=== PATIENT | female | born 1990 | race Caucasian/White ===

== ENCOUNTER 2019-07-15 06:58 | Inpatient (IN) | payer BC, MEDICAID ==
[2019-07-15] MEDS ORDERED: Misoprostol 50 MCG (1/2 of 100 MCG) Tab VAG ONE (07:12)
[2019-07-15] MEDS ORDERED: Sodium Chloride 0.9% 10 ML Syringe FLUSH PRN (07:25)
[2019-07-15] MEDS ORDERED: Ondansetron 4 MG/2 ML SDV IV PRN (07:25)
--- NOTE | 2019-07-15 07:43 | PCM.LDHP ---
L&D History of Present Illness - General Date of Service: 07/15/19 Admit Problem/Dx: Patient Status Order with Admit Dx/Problem 07/15/19 07:25 Patient Status [ADT] Routine Admission Diagnosis/Problem Admission Diagnosis/Problem - Related Data Allergies/Adverse Reactions: Allergies Allergy/AdvReac Type Severity Reaction Status Date / Time No Known Allergies Allergy Verified 07/15/19 07:19 Home Medications: Home Meds Lactobacillus Acidophilus [Probiotic] 1 each PO DAILY 07/15/19 [History] Pnv No.122/Iron/Folic Acid [ Multi Tablet] 1 tab PO DAILY 07/15/19 [ History] H&P Review of Systems - Review of Systems: Review Of Systems: See Below General: Reports: No Symptoms HEENT: Reports: No Symptoms Pulmonary: Reports: No Symptoms Cardiovascular: Reports: No Symptoms Gastrointestinal: Reports: No Symptoms Genitourinary: Reports: No Symptoms Musculoskeletal: Reports: No Symptoms Skin: Reports: No Symptoms Psychiatric: Reports: No Symptoms Neurological: Reports: No Symptoms Hematologic/Lymphatic: Reports: No Symptoms Immunologic: Reports: No Symptoms L&D Exam - Exam Exam: See Below - OB Specific Movement: Active Heart Tones: Present Presentation: Vertex - Kaminski Score Kaminski Score Cervix Position: Anterior Kaminski Score Consistency: Soft Kaminski Score Effacement: 51-70% Kaminski Score Dilation: 1-2 cm Kaminski Score 's Station: -1 ,0 Kaminski Score Total: 9 - Exam General: Alert, Oriented HEENT: PERRLA, Conjunctiva Clear, EACs Clear, EOMI, Hearing Intact, Mucosa Moist & [place], Nares Patent, Normal Nasal Septum, Posterior Pharynx Clear, TMs Clear Neck: Supple, Trachea Midline Lungs: Clear to Auscultation, Normal Respiratory Effort Cardiovascular: Regular Rate, Regular Rhythm GI/Abdominal Exam: Normal Bowel Sounds, Soft, Non-Tender, No Organomegaly, No Distention, No Abnormal Bruit, No Mass, Pelvis Stable Rectal Exam: Normal Exam, Normal Rectal Tone Genitourinary: Normal external exam, Normal bimanual exam, Normal speculum exam Back Exam: Normal Inspection, Full Range of Motion Extremities: Normal Inspection, Normal Range of Motion, Non-Tender, No Pedal Edema, Normal Capillary Refill Skin: Warm, Dry, Intact Neurological: Cranial Nerves Intact, Reflexes Equal Bilateral DTR: 2+: Patella (L), Patella (R) Psychiatric: Alert, Normal Affect, Normal Mood - Patient Data Lab Results Last 24 hrs: Laboratory Results - last 24 hr 07/15/19 Range/Units 07:11 WBC 9.1 (4.5-11.0) K/uL RBC 4.32 (3.30-5.50) M/uL Hgb 12.9 (12.0-15.0) g/dL Hct 38.9 (36.0-48.0) % MCV 90 (80-98) fL MCH 30 (27-31) pg MCHC 33 (32-36) % Plt Count 207 (150-400) K/uL Neut % (Auto) 80 H (36-66) % Lymph % (Auto) 14 L (24-44) % [place] % (Auto) 6 (2-6) % Eos % (Auto) 1 L (2-4) % Baso % (Auto) 0 (0-1) % Result Diagrams: 07/15/19 07:11 - Problem List (1) SNOMED Code(s): 84209118 ICD Code: Z34.90 - ENCNTR FOR SUPRVSN OF NORMAL , UNSP, UNSP TRIMESTER Status: Acute Current Visit: Yes Qualifiers: Weeks of gestation: 39 weeks Qualified Code(s): Z3A.39 - 39 weeks gestation of (2) Hx of macrosomia in infant in prior , currently SNOMED Code(s): 75748288208112, 59930566097996 ICD Code: O09.299 - SUPRVSN OF PREG W POOR REPRODCTV OR OBSTET HISTORY, UNSP TRI Status: Acute Current Visit: Yes (3) Encounter for induction of labor SNOMED Code(s): 671349082 ICD Code: Z34.90 - ENCNTR FOR SUPRVSN OF NORMAL , UNSP, UNSP TRIMESTER Status: Acute Current Visit: Yes Problem List Initiated/Reviewed/Updated: Yes Orders Last 24hrs: Active Orders 24 hr Category Date Time Status Patient Status [ADT] Routine ADT 07/15/19 07:25 Active Ambulate [RC] PER UNIT ROUTINE Care 07/15/19 07:25 Active Communication Order [RC] ASDIRECTED Care 07/15/19 07:25 Active Heart Tones [RC] PER UNIT ROUTINE Care 07/15/19 07:25 Active Non Stress Test [RC] Click to Edit Care 07/15/19 07:25 Active May Shower [RC] ASDIRECTED Care 07/15/19 07:25 Active Notify Provider Vital Signs [RC] PRN Care 07/15/19 07:25 Active Notify Provider [RC] PRN Care 07/15/19 07:25 Active Up ad Carmen [RC] ASDIRECTED Care 07/15/19 07:25 Active VTE/DVT Education [RC] Click to Edit Care 07/15/19 07:26 Active Vital Signs [RC] PER UNIT ROUTINE Care 07/15/19 07:25 Active Regular Diet [DIET] Diet 07/15/19 Breakfast Active DRUG SCREEN, URINE [URCHEM] Routine Lab 07/15/19 07:11 Ordered UA W/MICROSCOPIC [URIN] Routine Lab 07/15/19 07:10 Ordered Ondansetron [Zofran] Med 07/15/19 07:25 Active 4 mg IV Q4H PRN Sodium Chloride 0.9% [Saline Flush] Med 07/15/19 07:25 Active 10 ml FLUSH ASDIRECTED PRN DVT/VTE Prophylaxis Reflex [OM.PC] Routine Oth 07/15/19 07:25 Ordered Saline Lock Insert [OM.PC] Routine Oth 07/15/19 07:25 Ordered Resuscitation Status Routine Resus Stat 07/15/19 07:25 Ordered Medication Orders Ondansetron HCl (Zofran) 4 mg IV Q4H PRN PRN Reason: Nausea/Vomiting Sodium Chloride (Saline Flush) 10 ml FLUSH ASDIRECTED PRN PRN Reason: Keep Vein Open Assessment/Plan Comment:: 07/15/2019 29 yo here at 39 0/7 gestational weeks here for an induction of labor due to macrosomia in previous pregnancies and this baby measuring three weeks ahead on last ultrasound SVE-2-/-2 FHT-category one Occasional contraction Cytotec placed vaginally 50mcg Labs-O negative, GBS negative, Hep B neg, Hep C neg, HIV neg, RPR nonreactive, Rubella Immune, Hgb-12.9 Plan- Continue to monitor for active labor Continue to monitor FHTs Pain management per patient request Patient may eat regular diet Patient may be up ad carmen Plan and anticipate vaginal delivery
[2019-07-15] MEDS ORDERED: Oxytocin 10 Units/1 ML SDV ONE (11:07)
[2019-07-15] MEDS ORDERED: Naloxone 0.4 MG/ML SDV ONE (11:08)
[2019-07-15] MEDS ORDERED: Lidocaine 1% 50 ML MDV ONE (11:09)
[2019-07-15] MEDS ORDERED: Lanolin 100% Cream 40 GM Tube TOP ONE (13:09)
[2019-07-15] MEDS ORDERED: Benzocaine 20% Top Spray 56 GM Bottle TOP ONE (13:09)
[2019-07-15] MEDS ORDERED: Docusate Sodium 100 MG Cap PO PRN (13:09)
[2019-07-15] MEDS ORDERED: Acetaminophen 325 MG Tab, 50 Tab Bulk Bottle PO PRN (13:09)
[2019-07-15] MEDS ORDERED: Witch Hazel Medicated Pads 100/Jar TOP ONE (13:09)
[2019-07-15] MEDS ORDERED: Ibuprofen 200 MG Tab, 24 Tab Bulk Bottle PO PRN (13:09)
--- NOTE | 2019-07-15 13:38 | PCM.PNLD ---
Labor Progress Note - VS & Meds Vital Signs: Last Vital Signs Temp 36.6 C 07/15/19 11:30 Pulse 82 07/15/19 11:30 Resp 16 07/15/19 11:30 BP 137/82 07/15/19 11:30 Pulse Ox 99 07/15/19 11:30 Active Medications: Current Medications Acetaminophen (Tylenol Bulk Bottle) 0 mg PO Q4H PRN PRN Reason: Pain Benzocaine (Sroa-L-Vrebnuv 20% [place]) 0 gm TOP ONETIME ONE Stop: 07/15/19 13:10 Docusate Sodium (Colace) 100 mg PO BID PRN PRN Reason: Constipation Emollient Ointment (Lansinoh Hpa) 1 gm TOP ONETIME ONE Stop: 07/15/19 13:10 Oxytocin/Sodium Chloride (Pitocin In Ns 20 Units/1,000 Ml) 20 unit in 1,000 mls @ 999 mls/hr IV TITRATE JORDAN; Protocol Ibuprofen (Motrin Bulk Bottle) 600 mg PO Q6H PRN PRN Reason: Pain Ondansetron HCl (Zofran) 4 mg IV Q4H PRN PRN Reason: Nausea/Vomiting Sodium Chloride (Saline Flush) 10 ml FLUSH ASDIRECTED PRN PRN Reason: Keep Vein Open Witch Jazmyne (Tucks) 1 pad TOP ONETIME ONE Stop: 07/15/19 13:10 Discontinued Medications Oxytocin/Sodium Chloride (Pitocin In Ns 20 Units/1,000 Ml) Confirm Administered Dose 20 unit in 1,000 mls @ as directed .ROUTE .STK-MED ONE Stop: 07/15/19 11:10 Lidocaine HCl (Xylocaine 1%) Confirm Administered Dose 100 ml .ROUTE .STK-MED ONE Stop: 07/15/19 11:10 Misoprostol (Cytotec) 50 mcg VAG ONETIME ONE Stop: 07/15/19 07:13 Last Admin: 07/15/19 07:31 Dose: 50 mcg Naloxone HCl (Narcan) Confirm Administered Dose 0.4 mg .ROUTE .STK-MED ONE Stop: 07/15/19 11:09 Oxytocin (Pitocin) Confirm Administered Dose 10 unit .ROUTE .STK-MED ONE Stop: 07/15/19 11:08 - Uterine Contractions Uterine Monitoring Mode: External [place] Contraction Frequency (min): 2-2.5 Contraction Duration (sec): 50-70 Contraction Intensity: Mild to Moderate Uterine Resting Tone: Soft - Monitoring Monitor Mode: External Ultrasound Heart Rate (FHR) Variability: Moderate (6-25 bmp) Strip Review: Category I - Vaginal Exam Dilation (cm): 6-7 Effacement (Percent): 90 Sterile Vaginal Exam Performed By: Josefa Liang Vaginal Exam Comment: vag exam after ruptured membranes - Labor Progress (Free Text) Labor Progress: 07/15/2019 Patient progressing nicely SROM SVE-6-7/90/-1 FHTs category one Contractions regular Patient tolerated pain with breathing and position change Plan- Continue to monitor labor Continue to monitor FHTs Patient can continue to be up ad halley Patient can continue regular diet Pain management per patient request Plan and anticipate a vaginal delivery
--- NOTE | 2019-07-15 13:44 | PCM.DEL ---
L & D Note - General Info Date of Service: 07/15/19 Mother's Due Date: 07/22/19 - Delivery Note Cervical Ripening Method: Misoprostil Delivery Outcome: Livebirth Delivery Method: Spontaneous Vaginal Delivery-Single Delivery Mode: Spontaneous Presentation: Compound Nuchal Cord: Present, Reduced Prep: Other Anesthesia Type: None Amniotic Fluid Description: Clear Episiotomy Type: None Laceration: Perineal (small, not bleeding, not repaired) Placenta: Intact, Spontaneous Cord: 3 Vessels Estimated Blood Loss: 200 Resuscitation Needed: No [place]: Stimulated, Warmed, [place] Used Score 1 min: 9 Score 5 min: 9 Second Stage Interventions: Reports: Second Nurse Assessed Progress of Descent, Second Nurse Reviewed Contraction Pattern, Second Nurse Reviewed Heart Tones, Encouragement Given, Pushing Effectively, Pushing, McRobert's Position, Pushing, Stirrups/Leg Supports Delivery Comments (Free Text/Narrative):: 07/15/2019 29 yo at 39 0/7 gestational weeks delivered a viable male in [facility] with compound presentation at 1254 on 07/15/2019 over and intact perineum. Infant had a nuchal cord times one that was reduced, three vessel cord. Infant was placed on prewarmed blanket on mothers abdomen, delayed cord clamping was done for approximately 90 seconds. Cord was then double clamped and cut by father of . was dried, warmed, and stimulated, Infant cried and pinked in color. APGARS-9/9, weight-8lbs 6oz, length-20 inches, placenta spontaneous and intact. EBL-200ml. Small perineal laceration-not bleeding so not repaired. No other lacerations noted of vagina, cervix, rectum, or labia. Infant now skin to skin and stable with mother in labor and delivery room. Stages of labor- [id number] - General Info Date of Service: 07/15/19 - Review of Systems General: Reports: No Symptoms HEENT: Reports: No Symptoms Pulmonary: Reports: No Symptoms Cardiovascular: Reports: No Symptoms Gastrointestinal: Reports: No Symptoms Genitourinary: Reports: No Symptoms Musculoskeletal: Reports: No Symptoms Skin: Reports: No Symptoms Neurological: Reports: No Symptoms Psychiatric: Reports: No Symptoms - Patient Data Vitals - Most Recent: Last Vital Signs Temp 36.6 C 07/15/19 11:30 Pulse 82 07/15/19 11:30 Resp 16 07/15/19 11:30 BP 137/82 07/15/19 11:30 Pulse Ox 99 07/15/19 11:30 Weight - Most Recent: 107.501 kg I&O - Last 24 Hours: Intake & Output 07/14/19 07/15/19 07/15/19 22:59 06:59 14:59 Intake Total 600 Balance 600 Lab Results Last 24 Hours: Laboratory Results - last 24 hr 07/15/19 07/15/19 07/15/19 Range/Units 07:10 07:11 07:11 WBC 9.1 (4.5-11.0) K/uL RBC 4.32 (3.30-5.50) M/uL Hgb 12.9 (12.0-15.0) g/dL Hct 38.9 (36.0-48.0) % MCV 90 (80-98) fL MCH 30 (27-31) pg MCHC 33 (32-36) % Plt Count 207 (150-400) K/uL Neut % (Auto) 80 H (36-66) % Lymph % (Auto) 14 L (24-44) % [place] % (Auto) 6 (2-6) % Eos % (Auto) 1 L (2-4) % Baso % (Auto) 0 (0-1) % Urine Color Yellow (YELLOW) Urine Appearance Slightly cloudy A (CLEAR) Urine pH 7.0 (5.0-8.0) Ur Specific [place] 1.020 (1.008-1.030) Urine Protein Negative (NEGATIVE) mg/dL Urine Glucose (UA) Negative (NEGATIVE) mg/dL Urine Ketones Negative (NEGATIVE) mg/dL Urine Occult Blood Negative (NEGATIVE) Urine Nitrite Negative (NEGATIVE) Urine Bilirubin Negative (NEGATIVE) Urine Urobilinogen 0.2 (0.2-1.0) EU/dL Ur Leukocyte Esterase Negative (NEGATIVE) Urine RBC Not seen (0-5) Urine WBC 0-5 (0-5) Ur Epithelial Cells Moderate Amorphous Sediment Few Urine Bacteria Few Urine Mucus Moderate Urine Opiates Screen Negative (NEGATIVE) Ur Oxycodone Screen Negative (NEGATIVE) Urine Methadone Screen Negative (NEGATIVE) Ur Propoxyphene Screen Negative (NEGATIVE) Ur Barbiturates Screen Negative (NEGATIVE) Ur Tricyclics Screen Negative (NEGATIVE) Ur Phencyclidine Scrn Negative (NEGATIVE) Ur Amphetamine Screen Negative (NEGATIVE) U Methamphetamines Scrn Negative (NEGATIVE) Urine MDMA Screen Negative (NEGATIVE) U Benzodiazepines Scrn Negative (NEGATIVE) U Cocaine Metab Screen Negative (NEGATIVE) U Marijuana (THC) Screen Negative (NEGATIVE) Med Orders - Current: Current Medications Acetaminophen (Tylenol Bulk Bottle) 0 mg PO Q4H PRN PRN Reason: Pain Benzocaine (Kejq-Z-Lwcvioy 20% [place]) 0 gm TOP ONETIME ONE Stop: 07/15/19 13:10 Docusate Sodium (Colace) 100 mg PO BID PRN PRN Reason: Constipation Emollient Ointment (Lansinoh Hpa) 1 gm TOP ONETIME ONE Stop: 07/15/19 13:10 Oxytocin/Sodium Chloride (Pitocin In Ns 20 Units/1,000 Ml) 20 unit in 1,000 mls @ 999 mls/hr IV TITRATE JORDAN; Protocol Ibuprofen (Motrin Bulk Bottle) 600 mg PO Q6H PRN PRN Reason: Pain Ondansetron HCl (Zofran) 4 mg IV Q4H PRN PRN Reason: Nausea/Vomiting Sodium Chloride (Saline Flush) 10 ml FLUSH ASDIRECTED PRN PRN Reason: Keep Vein Open Discontinued Medications Oxytocin/Sodium Chloride (Pitocin In Ns 20 Units/1,000 Ml) Confirm Administered Dose 20 unit in 1,000 mls @ as directed .ROUTE .STK-MED ONE Stop: 07/15/19 11:10 Lidocaine HCl (Xylocaine 1%) Confirm Administered Dose 100 ml .ROUTE .STK-MED ONE Stop: 07/15/19 11:10 Misoprostol (Cytotec) 50 mcg VAG ONETIME ONE Stop: 07/15/19 07:13 Last Admin: 07/15/19 07:31 Dose: 50 mcg Naloxone HCl (Narcan) Confirm Administered Dose 0.4 mg .ROUTE .STK-MED ONE Stop: 07/15/19 11:09 Oxytocin (Pitocin) Confirm Administered Dose 10 unit .ROUTE .STK-MED ONE Stop: 07/15/19 11:08 Witch Jazmyne (Tucks) 1 pad TOP ONETIME ONE Stop: 07/15/19 13:10 - Exam General: Alert, Oriented, Co[place] HEENT: Pupils Equal, Pupils Reactive, EOMI, Mucous Membr. Moist/[place] Neck: Supple Lungs: Clear to Auscultation, Normal Respiratory Effort Cardiovascular: Regular Rate, Regular Rhythm GI/Abdominal Exam: Normal Bowel Sounds, Soft, Non-Tender, No Organomegaly, No Distention, No Abnormal Bruit, No Mass, Pelvis Stable (Female) Exam: Normal External Exam, Normal Speculum Exam, Normal Bimanual Exam, Enlarged Uterus, Vaginal Bleeding Back Exam: Normal Inspection, Full Range of Motion Extremities: Normal Inspection, Normal Range of Motion, Non-Tender, No Pedal Edema, Normal Capillary Refill Skin: Warm, Dry, Intact Neurological: No New Focal Deficit Psy/Mental Status: Alert, Normal Affect, Normal Mood - Problem List & Annotations (1) SNOMED Code(s): 40868181 Code(s): Z34.90 - ENCNTR FOR SUPRVSN OF NORMAL , UNSP, UNSP TRIMESTER Status: Acute Current Visit: Yes Qualifiers: Weeks of gestation: 39 weeks Qualified Code(s): Z3A.39 - 39 weeks gestation of (2) Hx of macrosomia in infant in prior , currently SNOMED Code(s): 56139308607881, 11572231584377 Code(s): O09.299 - SUPRVSN OF PREG W POOR REPRODCTV OR OBSTET HISTORY, UNSP TRI Status: Acute Current Visit: Yes (3) Encounter for induction of labor SNOMED Code(s): 981688111 Code(s): Z34.90 - ENCNTR FOR SUPRVSN OF NORMAL , UNSP, UNSP TRIMESTER Status: Acute Current Visit: Yes (4) Normal vaginal delivery SNOMED Code(s): 41739567, 244524670 Code(s): O80 - ENCOUNTER FOR FULL-TERM UNCOMPLICATED DELIVERY Status: Acute Current Visit: Yes (5) () SNOMED Code(s): 268444201 Code(s): Z78.9 - OTHER SPECIFIED HEALTH STATUS Status: Acute Current Visit: Yes - Problem List Review Problem List Initiated/Reviewed/Updated: Yes - My Orders Last 24 Hours: My Active Orders 07/15/19 07:25 Patient Status [ADT] Routine Ambulate [RC] PER UNIT ROUTINE Communication Order [RC] ASDIRECTED Non Stress Test [RC] Click to Edit May Shower [RC] ASDIRECTED Notify Provider Vital Signs [RC] PRN Notify Provider [RC] PRN Up ad Carmen [RC] ASDIRECTED Vital Signs [RC] PER UNIT ROUTINE Ondansetron [Zofran] 4 mg IV Q4H PRN Sodium Chloride 0.9% [Saline Flush] 10 ml FLUSH ASDIRECTED PRN DVT/VTE Prophylaxis Reflex [OM.PC] Routine Saline Lock Insert [OM.PC] Routine Resuscitation Status Routine 07/15/19 07:26 VTE/DVT Education [RC] Click to Edit 07/15/19 11:15 Oxytocin/Normal Saline [Pitocin in NS 20 Units/1,000 ML] 20 unit in 1,000 ml IV TITRATE 07/15/19 13:09 Acetaminophen [Tylenol Bulk Bottle] See Dose Instructions PO Q4H PRN Benzocaine [[id number]-[id number]-Kfbblrb 20% [place]] See Dose Instructions TOP ONETIME ONE Docusate Sodium [Colace] 100 mg PO BID PRN Ibuprofen [Motrin Bulk Bottle] 600 mg PO Q6H PRN Lanolin [Lansinoh HPA] 1 gm TOP ONETIME ONE Assess Lochia [WOMSER] Per Unit Routine Assess Uterine Involution [WOMSER] Per Unit Routine 07/15/19 13:10 Patient Status [ADT] Routine Vital Signs [RC] PFP Ice Therapy [OM.PC] Per Unit Routine Perineal Care [OM.PC] Per Unit Routine 07/15/19 Breakfast Regular Diet [DIET] 07/16/19 06:00 CBC WITH AUTO DIFF [HEME] Routine - Assessment Assessment:: 07/15/2019 without complications at 39 0/7 gestational weeks - Plan Plan:: 07/15/2019 29 yo here at 39 0/7 gestational weeks here for an induction of labor due to macrosomia in previous pregnancies and this baby measuring three weeks ahead on last ultrasound SVE-2-/-2 FHT-category one Occasional contraction Cytotec placed vaginally 50mcg Labs-O negative, GBS negative, Hep B neg, Hep C neg, HIV neg, RPR nonreactive, Rubella Immune, Hgb-12.9 Plan- Continue to monitor for active labor Continue to monitor FHTs Pain management per patient request Patient may eat regular diet Patient may be up ad carmen Plan and anticipate vaginal delivery 07/15/2019 Routine cares Encourage and support Plan discharge home in 24-48 hours
--- NOTE | 2019-07-16 07:34 | PCM.PNPP ---
- General Info Date of Service: 07/16/19 Functional Status: Reports: Pain Controlled - Review of Systems General: Reports: No Symptoms HEENT: Reports: No Symptoms Pulmonary: Reports: No Symptoms Cardiovascular: Reports: No Symptoms Gastrointestinal: Reports: No Symptoms Genitourinary: Reports: No Symptoms Musculoskeletal: Reports: No Symptoms Skin: Reports: No Symptoms Neurological: Reports: No Symptoms Psychiatric: Reports: No Symptoms - General Info Date of Service: 07/16/19 - Patient Data Vital Signs - Most Recent: Last Vital Signs Temp 36.2 C 07/16/19 02:41 Pulse 70 07/16/19 02:41 Resp 18 07/16/19 02:41 BP 121/81 07/16/19 02:41 Pulse Ox 100 07/16/19 02:41 Weight - Most Recent: 107.501 kg I&O - Last 24 Hours: Intake & Output 07/15/19 07/16/19 07/16/19 22:59 06:59 14:59 Intake Total 1400 Balance 1400 Lab Results - Last 24 Hours: Laboratory Results - last 24 hr 07/15/19 07/15/19 07/16/19 Range/Units 07:10 07:11 05:49 WBC 10.4 (4.5-11.0) K/uL RBC 3.89 (3.30-5.50) M/uL Hgb 11.6 L (12.0-15.0) g/dL Hct 35.1 L (36.0-48.0) % MCV 90 (80-98) fL MCH 30 (27-31) pg MCHC 33 (32-36) % Plt Count 193 (150-400) K/uL Neut % (Auto) 74 H (36-66) % Lymph % (Auto) 17 L (24-44) % Teller % (Auto) 7 H (2-6) % Eos % (Auto) 3 (2-4) % Baso % (Auto) 0 (0-1) % Urine Color Yellow (YELLOW) Urine Appearance Slightly cloudy A (CLEAR) Urine pH 7.0 (5.0-8.0) Ur Specific [place] 1.020 (1.008-1.030) Urine Protein Negative (NEGATIVE) mg/dL Urine Glucose (UA) Negative (NEGATIVE) mg/dL Urine Ketones Negative (NEGATIVE) mg/dL Urine Occult Blood Negative (NEGATIVE) Urine Nitrite Negative (NEGATIVE) Urine Bilirubin Negative (NEGATIVE) Urine Urobilinogen 0.2 (0.2-1.0) EU/dL Ur Leukocyte Esterase Negative (NEGATIVE) Urine RBC Not seen (0-5) Urine WBC 0-5 (0-5) Ur Epithelial Cells Moderate Amorphous Sediment Few Urine Bacteria Few Urine Mucus Moderate Urine Opiates Screen Negative (NEGATIVE) Ur Oxycodone Screen Negative (NEGATIVE) Urine Methadone Screen Negative (NEGATIVE) Ur Propoxyphene Screen Negative (NEGATIVE) Ur Barbiturates Screen Negative (NEGATIVE) Ur Tricyclics Screen Negative (NEGATIVE) Ur Phencyclidine Scrn Negative (NEGATIVE) Ur Amphetamine Screen Negative (NEGATIVE) U Methamphetamines Scrn Negative (NEGATIVE) Urine MDMA Screen Negative (NEGATIVE) U Benzodiazepines Scrn Negative (NEGATIVE) U Cocaine Metab Screen Negative (NEGATIVE) U Marijuana (THC) Screen Negative (NEGATIVE) Med Orders - Current: Current Medications Acetaminophen (Tylenol Bulk Bottle) 0 mg PO Q4H PRN PRN Reason: Pain Last Admin: 07/15/19 14:28 Dose: 1 bottle Docusate Sodium (Colace) 100 mg PO BID PRN PRN Reason: Constipation Last Admin: 07/15/19 23:53 Dose: 100 mg Oxytocin/Sodium Chloride (Pitocin In Ns 20 Units/1,000 Ml) 20 unit in 1,000 mls @ 999 mls/hr IV TITRATE JORDAN; Protocol Last Admin: 07/15/19 12:55 Dose: 999 mls/hr, 999 mls/hr Ibuprofen (Motrin Bulk Bottle) 600 mg PO Q6H PRN PRN Reason: Pain Last Admin: 07/15/19 14:28 Dose: 1 bottle Ondansetron HCl (Zofran) 4 mg IV Q4H PRN PRN Reason: Nausea/Vomiting Sodium Chloride (Saline Flush) 10 ml FLUSH ASDIRECTED PRN PRN Reason: Keep Vein Open Discontinued Medications Benzocaine (Vcgq-O-Verlcvm 20% [place]) 0 gm TOP ONETIME ONE Stop: 07/15/19 13:10 Last Admin: 07/15/19 14:27 Dose: 1 applic Emollient Ointment (Lansinoh Hpa) 0 gm TOP ONETIME ONE Stop: 07/15/19 13:10 Last Admin: 07/15/19 14:27 Dose: 1 tube Oxytocin/Sodium Chloride (Pitocin In Ns 20 Units/1,000 Ml) Confirm Administered Dose 20 unit in 1,000 mls @ as directed .ROUTE .STK-MED ONE Stop: 07/15/19 11:10 Last Admin: 07/15/19 13:45 Dose: Not Given Lidocaine HCl (Xylocaine 1%) Confirm Administered Dose 100 ml .ROUTE .STK-MED ONE Stop: 07/15/19 11:10 Last Admin: 07/15/19 13:45 Dose: Not Given Misoprostol (Cytotec) 50 mcg VAG ONETIME ONE Stop: 07/15/19 07:13 Last Admin: 07/15/19 07:31 Dose: 50 mcg Naloxone HCl (Narcan) Confirm Administered Dose 0.4 mg .ROUTE .STK-MED ONE Stop: 07/15/19 11:09 Last Admin: 07/15/19 13:45 Dose: Not Given Oxytocin (Pitocin) Confirm Administered Dose 10 unit .ROUTE .STK-MED ONE Stop: 07/15/19 11:08 Last Admin: 07/15/19 13:45 Dose: Not Given Witch Jazmyne (Tucks) 1 pad TOP ONETIME ONE Stop: 07/15/19 13:10 Last Admin: 07/15/19 14:28 Dose: 1 box - Infant Interaction Disposition, : at Bedside Interaction: Holding Infant Feeding: Attempted ; Nursed Fair/Poor Support Person: - Recovery Exam Fundal Tone: Firm Fundal Level: At Umbilicus Fundal Placement: Midline Lochia Amount: Moderate Lochia Color: Rubra/Red Perineum Description: Intact, Minimal Bruising/Swelling Episiotomy/Laceration: None Bladder Status: Voiding Urinary Elimination: Voided - Exam General: Alert, Oriented HEENT: Pupils Equal Neck: Supple Lungs: Clear to Auscultation, Normal Respiratory Effort Cardiovascular: Regular Rate, Regular Rhythm GI/Abdominal Exam: Normal Bowel Sounds, Soft, Non-Tender, No Organomegaly, No Distention, No Abnormal Bruit, No Mass, Pelvis Stable Extremities: Normal Inspection, Normal Range of Motion, Non-Tender, No Pedal Edema, Normal Capillary Refill Skin: Warm, Dry, Intact Neurological: No New Focal Deficit Psy/Mental Status: Alert, Normal Affect, Normal Mood - Problem List & Annotations (1) SNOMED Code(s): 83364294 Code(s): Z34.90 - ENCNTR FOR SUPRVSN OF NORMAL , UNSP, UNSP TRIMESTER Status: Acute Current Visit: Yes Qualifiers: Weeks of gestation: 39 weeks Qualified Code(s): Z3A.39 - 39 weeks gestation of (2) Hx of macrosomia in in prior , currently SNOMED Code(s): 14100870453438, 25571149027244 Code(s): O09.299 - SUPRVSN OF PREG W POOR REPRODCTV OR OBSTET HISTORY, UNSP TRI Status: Acute Current Visit: Yes (3) Encounter for induction of labor SNOMED Code(s): 320055642 Code(s): Z34.90 - ENCNTR FOR SUPRVSN OF NORMAL , UNSP, UNSP TRIMESTER Status: Acute Current Visit: Yes (4) Normal vaginal delivery SNOMED Code(s): 62043675, 738584717 Code(s): O80 - ENCOUNTER FOR FULL-TERM UNCOMPLICATED DELIVERY Status: Acute Current Visit: Yes (5) (infant) SNOMED Code(s): 782376967 Code(s): Z78.9 - OTHER SPECIFIED HEALTH STATUS Status: Acute Current Visit: Yes - Problem List Review Problem List Initiated/Reviewed/Updated: Yes - My Orders Last 24 Hours: My Active Orders 07/15/19 07:25 Patient Status [ADT] Routine Ambulate [RC] PER UNIT ROUTINE May Shower [RC] ASDIRECTED Notify Provider Vital Signs [RC] PRN Notify Provider [RC] PRN Up ad Carmen [RC] ASDIRECTED Ondansetron [Zofran] 4 mg IV Q4H PRN Sodium Chloride 0.9% [Saline Flush] 10 ml FLUSH ASDIRECTED PRN DVT/VTE Prophylaxis Reflex [OM.PC] Routine Saline Lock Insert [OM.PC] Routine Resuscitation Status Routine 07/15/19 07:26 VTE/DVT Education [RC] Click to Edit 07/15/19 11:15 Oxytocin/Normal Saline [Pitocin in NS 20 Units/1,000 ML] 20 unit in 1,000 ml IV TITRATE 07/15/19 13:09 Acetaminophen [Tylenol Bulk Bottle] See Dose Instructions PO Q4H PRN Docusate Sodium [Colace] 100 mg PO BID PRN Ibuprofen [Motrin Bulk Bottle] 600 mg PO Q6H PRN Assess Lochia [WOMSER] Per Unit Routine Assess Uterine Involution [WOMSER] Per Unit Routine 07/15/19 13:10 Patient Status [ADT] Routine Vital Signs [RC] PFP Ice Therapy [OM.PC] Per Unit Routine Perineal Care [OM.PC] Per Unit Routine 07/15/19 Breakfast Regular Diet [DIET] - Assessment Assessment:: 07/15/2019 without complications at 39 0/7 gestational weeks 07/16/2019 without complications day one Voiding and passing gas Fundus firm and bleeding decreasing Hgb 11.6 fair-baby sleepy and occasionally gaggy Happy with delivery Desires 24 hr discharge - Plan Plan:: 07/15/2019 29 yo here at 39 0/7 gestational weeks here for an induction of labor due to macrosomia in previous pregnancies and this baby measuring three weeks ahead on last ultrasound SVE-2-/-2 FHT-category one Occasional contraction Cytotec placed vaginally 50mcg Labs-O negative, GBS negative, Hep B neg, Hep C neg, HIV neg, RPR nonreactive, Rubella Immune, Hgb-12.9 Plan- Continue to monitor for active labor Continue to monitor FHTs Pain management per patient request Patient may eat regular diet Patient may be up ad carmen Plan and anticipate vaginal delivery 07/15/2019 Routine cares Encourage and support Plan discharge home in 24-48 hours 07/16/2019 Continue routine cares Continue to encourage and support Have see her today Plan discharge home in 24-48 hours
== END 2019-07-16 15:25 | disposition home or self-care (01) | DRG 560 ==
LOC: JP.OB 06:58 → OBSVTOIN 12:54 → JP.MS 13:44
PROVIDERS: ADMIT Advanced Practice Midwife; ATTEND Advanced Practice Midwife
PROC: 10E0XZZ Delivery of Products of Conception, External Approach (ICD-10-PCS; principal; 2019-07-15)
PROC: 3E0P7VZ Introduction of Hormone into Female Reproductive, Via Natural or Artificial Opening (ICD-10-PCS; 2019-07-15)
PROC: 10907ZC Drainage of Amniotic Fluid, Therapeutic from Products of Conception, Via Natural or Artificial Opening (ICD-10-PCS; 2019-07-15)
DX: O36.63X0 Maternal care for excessive fetal growth, third trimester, not applicable or unspecified (principal); O69.81X0 Labor and delivery complicated by cord around neck, without compression, not applicable or unspecified; Z3A.39 39 weeks gestation of pregnancy; Z37.0 Single live birth
CPT/HCPCS: 36415; 59409; 80305-QW; 81001; 85025; A9270-GY; J2590